=== PATIENT | male | born 1950 | race Caucasian/White ===

== ENCOUNTER → 2020-07-11 | Outpatient (CLI) | payer MEDICARE ==
[~2020-07-11] MED LIST: CATAPRES 0.1MG0.1 MG PO; CLARITHROMYCIN500 MG PO; CLEOCIN HCL150 MG PO; CLINDAMYCIN HC300 MG PO; HYDRALAZINE HCL25 MG PO; K-DUR TAB 10 M10 MEQ PO; KLOR-CON M1010 MEQ PO; LASIX20 MG PO; LASIX40 MG PO; LEVEMIR100 UNIT/1 SQ; LISINOPRIL40 MG PO; MEDROL DOSEPAK 24 MG PO; MONTELUKAST SOD10 MG PO; NORVASC 5 MG TAB5 MG PO; NOVOLOG 10100 UNITS1 SQ; SYNTHROID75 MCG PO; VALACYCLOVIR1000 MG PO; ZESTRIL 40 MG T40 MG PO; ZOCOR20 MG PO; ZOFRAN4 MG PO
[2020-07-12 10:14] LABS: CREATININE, URINE 145.8 mg/dL (Not Estab.); MICROALB/CREAT RATIO <2 (0-29)
== END ==
LOC: LAB 09:54
PROVIDERS: Internal Medicine Nephrology
DX: N18.9 Chronic kidney disease, unspecified (principal)
CPT/HCPCS: 36415; 80053; 81001; 82043; 82570; 84156

== ENCOUNTER → 2020-10-10 | Outpatient (CLI) | payer OTHER ==
[2020-10-11 10:17] LABS: CREATININE, URINE 72.7 mg/dL (Not Estab.); MICROALB/CREAT RATIO <4 (0-29)
== END ==
LOC: LAB 09:09
PROVIDERS: Internal Medicine Nephrology
DX: N18.9 Chronic kidney disease, unspecified (principal)
CPT/HCPCS: 36415; 80053; 81001; 82043; 82570; 84156

== ENCOUNTER → 2020-12-23 | Outpatient (CLI) | payer OTHER | LOC: RAD 09:04 | DX: M25.512 Pain in left shoulder (principal); M19.012 Primary osteoarthritis, left shoulder; R91.8 Other nonspecific abnormal finding of lung field | CPT/HCPCS: 73030 ==

== ENCOUNTER → 2020-12-30 | Outpatient (CLI) | payer OTHER | LOC: KOH-I 08:43 | DX: R05 Cough (principal); R93.7 Abnormal findings on diagnostic imaging of other parts of musculoskeletal system | CPT/HCPCS: 71046 ==

== ENCOUNTER → 2021-02-13 | Outpatient (CLI) | payer OTHER ==
[2021-02-14 09:14] LABS: CREATININE, URINE 92.7 mg/dL (Not Estab.); MICROALB/CREAT RATIO <3 (0-29)
== END ==
LOC: LAB 09:29
PROVIDERS: Internal Medicine Nephrology
DX: N18.9 Chronic kidney disease, unspecified (principal)
CPT/HCPCS: 36415; 80053; 81001; 82043; 82570; 84156

== ENCOUNTER 2021-05-09 23:39 | Inpatient (IN) | payer OTHER ==
[~2021-05-09] VITALS: Ht 165.1 cm; Wt 172.9 kg
[~2021-05-09 23:39] MED LIST changes: +FUROSEMIDE40 MG PO; +HYDROCODON-ACE1 EAC6 PO; +KEFLEX750 MG PO; +SYMBICORT 80-10.2 GM INH; +SYNTHROID 150150 MCG PO; -SYNTHROID75 MCG PO; +VITAMIN D21250 MCG PO
[2021-05-10 00:37] LABS: HEMOGLOBIN 13.8 gm/dl (14.0-17.5); RED BLOOD COUNT 4.2 M/UL (4.20-5.50); WHITE BLOOD COUNT 11.4 K/UL (4.5-11.0)
[2021-05-10 07:35] LABS: HEMOGLOBIN 12.1 gm/dl (14.0-17.5); RED BLOOD COUNT 3.78 M/UL (4.20-5.50); WHITE BLOOD COUNT 10.3 K/UL (4.5-11.0)
--- NOTE | 2021-05-10 14:15 | NUR ---
PT GOING TO 4104 VIA BED WILL GIVE LACHELLE BEDSIDE REPORT
[2021-05-11 07:46] LABS: HEMOGLOBIN 11.5 gm/dl (14.0-17.5); RED BLOOD COUNT 3.65 M/UL (4.20-5.50)
--- NOTE | 2021-05-12 01:33 | NUR ---
CHANGED PATIENT DRESSING (ABD AND PAPER TAPE), PLACED DISPOSABLE BLUE PADS ALONG PATIENTS SIDE AND APPLIED BARRIER CREAM TO PATIENTS PENIS AND GROIN AREA. PATIENT TOLERATED WELL
[2021-05-12 05:50] LABS: HEMOGLOBIN 11.9 gm/dl (14.0-17.5); RED BLOOD COUNT 3.73 M/UL (4.20-5.50); WHITE BLOOD COUNT 10.4 K/UL (4.5-11.0)
--- NOTE | 2021-05-12 07:01 | NUR ---
0701 CONTACTED PROVIDER WITH CRITICAL POYASSIUM OF 5.5.
[2021-05-13 06:30] LABS: RED BLOOD COUNT 3.69 M/UL (4.20-5.50); WHITE BLOOD COUNT 9.4 K/UL (4.5-11.0)
[2021-05-14 07:06] LABS: HEMOGLOBIN 11.7 gm/dl (14.0-17.5); RED BLOOD COUNT 3.6 M/UL (4.20-5.50); WHITE BLOOD COUNT 9.2 K/UL (4.5-11.0)
[2021-05-14 08:12] LABS: HBSAG SCREEN Negative (Negative); HEP A AB, IGM Negative (Negative); HEP B CORE AB, IGM Negative (Negative); HEP C VIRUS AB 0.2 (0.0-0.9)
--- NOTE | 2021-05-14 18:09 | NUR ---
PATIENT COMPLAINS OF BURNING SENSATION IN MART AREA. PROVIDER IS AWARE. NURSE AND AID WASHED AND DRYED THOROUGHLY PATIENTS MART AREA AND PROVIDED CATH CARE. NYSTATIN POWDER APPLIED. DRY PILLOW CASES PLACED IN FOLDS UNDER PANIS. PATIENT IS MORE COMFORTABLE. WILL CONTINUE TO MONITOR.
[2021-05-15 09:45] LABS: HEMOGLOBIN 12.3 gm/dl (14.0-17.5); RED BLOOD COUNT 3.74 M/UL (4.20-5.50); WHITE BLOOD COUNT 9.5 K/UL (4.5-11.0)
[2021-05-16 22:03] LABS: HEMOGLOBIN 12.5 gm/dl (14.0-17.5); RED BLOOD COUNT 3.89 M/UL (4.20-5.50)
[2021-05-17 03:23] LABS: HEMOGLOBIN 11.2 gm/dl (14.0-17.5); RED BLOOD COUNT 3.56 M/UL (4.20-5.50); WHITE BLOOD COUNT 10.8 K/UL (4.5-11.0)
[2021-05-18 10:41] LABS: HEMOGLOBIN 11.1 gm/dl (14.0-17.5); RED BLOOD COUNT 3.52 M/UL (4.20-5.50); WHITE BLOOD COUNT 10.4 K/UL (4.5-11.0)
[2021-05-18 16:24] LABS: RED BLOOD COUNT 3.36 M/UL (4.20-5.50); WHITE BLOOD COUNT 10.1 K/UL (4.5-11.0)
[2021-05-19 08:25] LABS: HEMOGLOBIN 11.3 gm/dl (14.0-17.5); RED BLOOD COUNT 3.55 M/UL (4.20-5.50); WHITE BLOOD COUNT 11.5 K/UL (4.5-11.0)
[2021-05-19 14:08] LABS: HEMOGLOBIN 11.7 gm/dl (14.0-17.5); RED BLOOD COUNT 3.57 M/UL (4.20-5.50); WHITE BLOOD COUNT 13.1 K/UL (4.5-11.0)
[2021-05-20 03:58] LABS: HEMOGLOBIN 12.8 gm/dl (14.0-17.5); RED BLOOD COUNT 3.86 M/UL (4.20-5.50); WHITE BLOOD COUNT 13.8 K/UL (4.5-11.0)
[2021-05-20 14:13] LABS: HEMATOCRIT 32.3 % (37.5-51.0)
[2021-05-20 18:14] LABS: HEPARIN INDUCED PLATELET AB 0.169 OD (0.000-0.400)
[2021-05-21 03:02] LABS: HEMOGLOBIN 12.2 gm/dl (14.0-17.5); RED BLOOD COUNT 3.72 M/UL (4.20-5.50); WHITE BLOOD COUNT 13.8 K/UL (4.5-11.0)
[2021-05-21 19:42] LABS: HEMOGLOBIN 12.7 gm/dl (14.0-17.5); RED BLOOD COUNT 3.9 M/UL (4.20-5.50)
[2021-05-21 19:59] LABS: WHITE BLOOD COUNT 18.6 K/UL (4.5-11.0)
--- NOTE | 2021-05-21 22:30 | NUR ---
RECIEVED INFORMATION IN REPORT THAT PT HAD BEEN HAVING DARK BROWN, COFFEE COLORED EMESIS SINCE AFTER DIALYSIS. DURING BEDSIDE REPORT WITH ENRIQUE HALL, IT WAS CLEAR THAT PT HAD VOMITTED AGAIN. YVES HALL AND I STAYED AFTER REPORT TO ATTEMPT TO CLEAN THE PT UP AND CHANGE THE DRESSING OF HIS DIALYSIS CATHETER, BECAUSE IT HAD BEEN SATURATED WITH VOMIT. DURING CHANGING THE PT AND THE DRESSING, PT WAS STILL VOMITING. CALLED DR. SUAREZ AND ALERTED HER THAT THE PT WAS STILL HAVING COFFEE COLORED EMESIS, AND PROCEEDED TO FOLLOW THROUGH WITH MD'S ORDERS. PT HAD AUDIBLE RHONCHI THAT GOT INCREASINGLY WORSE AFTER VOMITING AGAIN. CALLED DR. NUNEZ AT 185 AND NOTIFIED HIM OF POSSIBLE ASPIRATION AND REQUESTED A MD TO COME SEE THE PT. GAVE ORDERS AND DID NOT COME SEE THE PT. FAMILY WAS ALERTED TO THE PT'S CHANGE IN CONDITION. PT CONTINUED TO DETERIORATE. RESPIRATORY ANALY AN ABG AND THE RESULTS WERE CALLED TO THE MD FOLLOWED BY REPORTING A CRITICAL GLUCOSE WHILE PT WAS GETTING AN AMP OF D50. PRIOR TO CALLING THE ABG, ICU WAS CALLED TO GET AHOLD OF DR. BAKER TO ALERT HIM OF PT CHANGES, BECAUSE HE WAS A DIALYSIS PT. MD STATED HE WOULD UP TO SEE THE PT. DR. BAKER ARRIVED TO THE FLOOR AROUND 2044 TO ASSESS THE PT AND PROCEEDED TO PUT IN AND IMPLEMENT ORDERS FOR THE PT. WHILE WITH DR. BAKER, HE PLACED AN NG TUBE TO INTERMITTENT WALL SUCTION TO HELP WITH THE CONSTANT VOMITING. PRIOR TO THIS POINT, THE PT HAD BEEN VERY ANXIOUS AND KEPT STATING THAT HE FELT LIKE HE WAS "GOING TO ". AFTER THE NG WAS PLACED. PT BECAME VISIBLY MORE RELAXED, BUT WAS STILL RESPONDING APPROPRIATELY TO QUESTIONS ABOUT WHERE WE WERE AND WHO THE STAFF WAS. PT PROCEEDED TO GET NOTICEABLY MORE LETHARGIC AND STARTED TO BECOME BRADYCARDIC AND HYPOTENSIVE. PT BECAME NONRESPONSIVE TO QUESTIONS OR NOXIOUS STIMULI. DR. BAKER WAS ALERTED SINCE HE WAS STILL ON THE FLOOR, AND PROCEEDED TO CALL AN GOLD MARKER ON THE PT. NO OTHER PHYSICIANS RESPONDED TO THE GOLD MARKER, AND DR. BAKER MADE ALL THE ORDERS.
== END 2021-05-22 00:40 | disposition expired | DRG 871 ==
LOC: ER1 23:39 → MED SURG 4 05-10 01:18 → CDU 05-10 01:18 → PROG CARE 05-10 01:18 → 3 EAST 05-10 01:18 → MED SURG 4 05-10 14:36 → PROG CARE 05-16 22:56
PROVIDERS: Family Medicine; Internal Medicine; Internal Medicine Nephrology; Registered Nurse; ADMIT Internal Medicine
PROC: 02HV33Z Insertion of Infusion Device into Superior Vena Cava, Percutaneous Approach (ICD-10-PCS; principal; 2021-05-17)
PROC: B24BZZZ Ultrasonography of Heart with Aorta (ICD-10-PCS; 2021-05-17)
PROC: 5A1D70Z Performance of Urinary Filtration, Intermittent, Less than 6 Hours Per Day (ICD-10-PCS; 2021-05-17)
PROC: 5A1D70Z Performance of Urinary Filtration, Intermittent, Less than 6 Hours Per Day (ICD-10-PCS; 2021-05-19)
PROC: 5A1D70Z Performance of Urinary Filtration, Intermittent, Less than 6 Hours Per Day (ICD-10-PCS; 2021-05-21)
DX: A41.9 Sepsis, unspecified organism (principal); G93.41 Metabolic encephalopathy; N17.0 Acute kidney failure with tubular necrosis; J69.0 Pneumonitis due to inhalation of food and vomit; K76.7 Hepatorenal syndrome; I13.0 Hypertensive heart and chronic kidney disease with heart failure and stage 1 through stage 4 chronic kidney disease, or unspecified chronic kidney disease; L03.311 Cellulitis of abdominal wall; R18.8 Other ascites; I47.1 Supraventricular tachycardia; E87.2 Acidosis; Z68.44 Body mass index [BMI] 60.0-69.9, adult; K92.0 Hematemesis; K74.60 Unspecified cirrhosis of liver; R65.20 Severe sepsis without septic shock; Z20.822 Contact with and (suspected) exposure to COVID-19; J45.909 Unspecified asthma, uncomplicated; D75.82 Heparin induced thrombocytopenia (HIT); E86.0 Dehydration; Z66 Do not resuscitate; I48.0 Paroxysmal atrial fibrillation; E87.6 Hypokalemia; E87.5 Hyperkalemia; K59.00 Constipation, unspecified; E66.01 Morbid (severe) obesity due to excess calories; N18.30 Chronic kidney disease, stage 3 unspecified; E78.5 Hyperlipidemia, unspecified; E11.22 Type 2 diabetes mellitus with diabetic chronic kidney disease; Z85.828 Personal history of other malignant neoplasm of skin; Z79.899 Other long term (current) drug therapy; Z79.01 Long term (current) use of anticoagulants; Z99.2 Dependence on renal dialysis
CPT/HCPCS: ECHO; 36415; 36600; 70450; 71045; 74018; 80048; 80053; 80074; 81001; 82009; 82140; 82550; 82553; 82607; 82747; 82803; 82962; 83036; 83605; 83735; 83880; 83921; 84100; 84300; 84484; 85025; 85027; 85610; 85730; 86140; 87040; 87086; 90935; 90937; 93005; 93306; 93880; 96374; 97110; 97110-GP-CQ; 97162; 97530-GP-CQ; 99285; A6212; C1752; C9113; J0461; J0692; J1160; J1644; J2020; J2185; J2354; J2405; J3370; J7070; P9047; U0002